=== PATIENT | male | born 1985 | race Caucasian/White ===

== ENCOUNTER 2020-06-26 12:08 | Emergency (ER) | payer SELFPAY ==
[2020-06-26] MEDS ORDERED: Proparacaine 0.5% Ophth Soln 15 ML Bottle ONE (13:05)
[2020-06-26] MEDS ORDERED: HYDROmorphone 0.5 MG/0.5 ML Syringe ONE (14:17)
--- NOTE | 2020-06-30 18:31 | EDM.PDOC ---
ED HPI GENERAL MEDICAL PROBLEM - General Chief Complaint: Eye Problems Stated Complaint: SWOLLEN LEFT EYE Time Seen by Provider: 06/26/20 12:16 - History of Present Illness INITIAL COMMENTS - FREE TEXT/NARRATIVE: See paper chart for details ED ROS GENERAL - Review of Systems Review Of Systems: See Below Reason Not Obtained: See paper chart for details ED EXAM GENERAL W FULL EYE - Physical Exam Exam: See Below Text/Narrative:: See paper chart for details Course - Orders/Labs/Meds Meds: Medications Discontinued Medications Generic Name Dose Route Start Last Admin Trade Name Freq PRN Reason Stop Dose Admin Proparacaine HCl Confirm 06/26/20 13:05 Proparacaine 0.5% Ophth Soln Administered 06/26/20 13:06 Dose 15 ml .ROUTE .STK-MED ONE Departure - Departure Time of Disposition: 18:30 Disposition: Home, Self-Care 01 Clinical Impression: Subconjunctival hemorrhage Qualifiers: Laterality: left Qualified Code(s): H11.32 - Conjunctival hemorrhage, left eye - Discharge Information Referrals: PCP,None [Primary Care Provider] - Forms: ED Department Discharge
== END 2020-06-26 14:53 | disposition home or self-care (01) ==
LOC: JP.ED 12:08
DX: H11.32 Conjunctival hemorrhage, left eye (principal)
CPT/HCPCS: 99283; A9270